=== PATIENT | male | born 1955 | race Caucasian/White ===

== ENCOUNTER 2016-09-28 09:30 | Outpatient (RCR) | payer BC, OTHER | END 2016-10-01 09:00 | disposition home or self-care (01) | LOC: CR 09:30 | PROVIDERS: ATTEND Family Medicine | DX: I21.19 ST elevation (STEMI) myocardial infarction involving other coronary artery of inferior wall (principal); Z95.1 Presence of aortocoronary bypass graft | CPT/HCPCS: 93798 ==

== ENCOUNTER → 2016-10-04 | Outpatient (CLI) | payer BC, OTHER | LOC: EMS 11:30 | PROVIDERS: ATTEND Internal Medicine | DX: I20.0 Unstable angina (principal); Z95.818 Presence of other cardiac implants and grafts ==

== ENCOUNTER → 2016-10-04 | Outpatient (REF) | payer BC, OTHER | LOC: LAB 10:16 | PROVIDERS: ATTEND Family Medicine | DX: I20.9 Angina pectoris, unspecified (principal) | CPT/HCPCS: 84484 ==